=== PATIENT | male | born 1940 | race Two or more races ===

== ENCOUNTER 2023-12-11 17:09 | Emergency (ER) | payer SELFPAY ==
[~2023-12-11] VITALS: Ht 180.3 cm; Wt 129.4 kg
[2023-12-11 17:25] VITALS: BP 137/89; PULSE 77; RESP 23; TEMP 98.8; O2SAT 92
[2023-12-11] MEDS ORDERED: CEPHALEXIN 250 MG CAP PO ONE (20:00)
[2023-12-11] MEDS: TETANUS-DIPTH-ACEL PERTUSSIS 0.5ML SYR Tdap IM ONE (20:00)
[2023-12-11] MEDS: NEOMYCIN-BACITRACIN-POLYM UNITDOSE PKG TOP OINT TOP ONE (20:17)
[2023-12-11] MEDS: CLINDAMYCIN HCL 150 MG CAP PO ONE (20:18)
[2023-12-11] MEDS: HYDROcodone-ACET 5/325MG TAB PO ONE (20:18)
== END 2023-12-11 22:36 | disposition left against medical advice (07) ==
LOC: EDBD 17:09 → ER 17:09
DX: S51.011A Laceration without foreign body of right elbow, initial encounter (principal); S13.4XXA Sprain of ligaments of cervical spine, initial encounter; S00.03XA Contusion of scalp, initial encounter; S00.83XA Contusion of other part of head, initial encounter; S20.211A Contusion of right front wall of thorax, initial encounter; M54.50 Low back pain, unspecified; I48.91 Unspecified atrial fibrillation; I25.10 Atherosclerotic heart disease of native coronary artery without angina pectoris; E11.9 Type 2 diabetes mellitus without complications; Z86.73 Personal history of transient ischemic attack (TIA), and cerebral infarction without residual deficits; V89.2XXA Person injured in unspecified motor-vehicle accident, traffic, initial encounter; Y93.89 Activity, other specified; Y92.410 Unspecified street and highway as the place of occurrence of the external cause; Y99.8 Other external cause status
CPT/HCPCS: 70450; 70486; 71250; 72125; 73080; 74176